=== PATIENT | female | born 1990 | race Asian ===

== ENCOUNTER 2017-12-08 20:30 | Emergency (ER) | payer OTHER ==
[~2017-12-08] VITALS: Ht 172.7 cm; Wt 150.0 kg
[2017-12-08 20:36] VITALS: BP 118/79
[2017-12-08] MEDS ORDERED: ASPIRIN 81 MG TABLET CHEW PO ONE (21:00)
[2017-12-08 21:13] LABS: ALBUMIN 3.5 g/dL (3.4-5.0); ANION GAP 9 mmol/L (5-15); CALCIUM 8.6 mg/dL (8.5-10.1); CHLORIDE 110 mmol/L (98-107)
[2017-12-08 21:19] LABS: ALANINE AMINOTRANSFERASE 28 U/L (12-78); ALKALINE PHOSPHATASE 63 U/L (45-117); BILIRUBIN,TOTAL 0.2 mg/dL (0.2-1.0); CREATININE 0.82 mg/dL (0.55-1.02); TOTAL PROTEIN 7.8 g/dL (6.4-8.2); TROPONIN I < 0.015 ng/mL (0.000-0.045)
== END 2017-12-08 22:26 | disposition home or self-care (01) ==
LOC: ED 21:50
DX: M62.838 Other muscle spasm (principal); R07.89 Other chest pain
CPT/HCPCS: 36415; 71046; 80053; 83880; 84484; 93005; 99285